=== PATIENT | female | born 1985 | race Caucasian/White ===

== ENCOUNTER → 2018-11-10 15:57 | Outpatient (CLI) | payer OTHER, SELFPAY ==
[2018-11-23 17:32] LABS: HPV HC, High Risk Positive (Negative)
[2018-11-27 14:27] LABS: HPV Reflexed? YES, CHARGE PATIENT
== END ==
LOC: LABSPEC 15:59
PROVIDERS: PCP Internal Medicine; Visit Provider Obstetrics & Gynecology
DX: Z12.4 Encounter for screening for malignant neoplasm of cervix (principal)
CPT/HCPCS: 87624; 88175; G0145

== ENCOUNTER → 2018-12-22 13:48 | Outpatient (CLI) | payer OTHER, SELFPAY ==
[2017-05-04 07:57] VITALS: BMI 42.4
--- NOTE | 2018-12-22 | IMM_PTH ---
PATIENT: ANSON DARBY LOC: [facility] U#:[id number] AGE/SX: 39/F ROOM: RE12/22/[address]: Dr. Simi Ruiz MD : 1985 BED: DIS: SPEC #: [id number] RECD: 12/23/18 13:05 STATUS: VU REQ #: [id number] HEIDY: 12/22/18 00:[address]: Simi Ruiz DEPT: IMMUNOHISTOCHEMISTRY RECD BY: Ashleigh Stiles ENTERED: 12/23/18 13:06 SP TYPE: IMMUNO OTHR DR: Dr. Tammy Cruz MD Tissues: A - Uterine cervix, NOS Procedures: p16 (initial) KI-67 (add) PHYSICIAN & [place] [phone] SPECIMEN INFORMATION: Tissue Source: A - Cervix at 6 & 12 o'clock Clinical Info: ASCUS, positive HPV Specimen Number: [id number] CPT code: 20780, 74070 METHODOLOGY: Deparaffinized sections of prefer/formalin-fixed tissue or PAP/DQ stained slides are incubated with monoclonal/polyclonal antibodies/oligonucleotide probes. Localization is made via biotin free immunoperoxidase method. Appropriate controls are performed and reacted as expected. Results on target cell population are indicated in the following table: RESULTS: ANTIBODY / CLONE RESULT Block A P16 (E6H4) positive, block staining Ki-67 (30-9) positive, moderate to high These tests were developed and their performance characteristics determined by [facility]. They may not have been cleared or approved by the U.S. Food and Drug Administration. The FDA has determined that such clearance or approval is not necessary. INTERPRETATION: A. Cervix at 6 & 12 o'clock, biopsy: Focal moderate to severe squamous dysplasia. LIZ:angi 12/23/18
--- NOTE | 2018-12-22 11:30 | CER_PTH ---
PATIENT: ANSON DARBY LOC: [facility] U#:[id number] AGE/SX: 39/F ROOM: RE12/22/[address]: Dr. Simi Ruiz MD : 1985 BED: DIS: SPEC #: [id number] RECD: 12/22/18 13:35 STATUS: VU DEYANIRA #: [id number] HEIDY: 12/22/18 11:[address]: Simi Ruiz DEPT: SURGICAL PATHOLOGY RECD BY: Iván Rodríguez ENTERED: 12/22/18 14:00 SP TYPE: CERV OTHR DR: Dr. Tammy Cruz MD Tissues: A - Uterine cervix, NOS B - Endocervical Procedures: Surgery Specimen Level IV HEADER OPERATION: Colposcopy PRE-OP DIAGNOSIS: LMP 15, ASCUS, positive HPV, rule out HGSIL TISSUE SUBMITTED: A - Cervical 6 & 12 o'clock, B - ECC MICROSCOPIC DIAGNOSIS A. Cervix, 6 & 12 o'clock, biopsy: Moderate to severe squamous dysplasia with HPV changes (HGSIL, ARIAN II-III). Dysplastic changes also involve the endocervical glands. Chronic inflammation. See comment. B. ECC: Fragments of benign endocervical epithelium, blood and mucous, negative for dysplasia. Superficial fragments of benign endometrial tissue. LIZ:angi 12/23/18 COMMENT A. Immunohistochemistry ([id number]) for surrogate HPV marker (p16) supports the above diagnosis. MICROSCOPIC DESCRIPTION Slides are reviewed. GROSS DESCRIPTION A - Received in fixative is one container labeled with the patient's name and designated cervical biopsy. The specimen consists of two irregular fragments of light hayes soft tissue that in aggregate measure 0.5 x 0.3 x 0.1 cm. The specimen is totally submitted in one cassette. B - Received in fixative is one container labeled with the patient's name and designated ECC. The specimen consists of multiple fragments of hemorrhagic soft tissue that in aggregate measure 2 x 1 x 0.2 cm. The specimen is totally submitted in one cassette. / SJ:angi 12/22/18 TC:5 CPT: 26961 x2
== END ==
LOC: LABSPEC 13:49
PROVIDERS: Family Provider Internal Medicine; PCP Internal Medicine; Referring Provider Obstetrics & Gynecology; Visit Provider Obstetrics & Gynecology
DX: R87.610 Atypical squamous cells of undetermined significance on cytologic smear of cervix (ASC-US) (principal); R87.810 Cervical high risk human papillomavirus (HPV) DNA test positive
CPT/HCPCS: 88305; 88341; 88342

== ENCOUNTER 2019-01-12 10:45 | Day surgery (SDC) | payer OTHER, SELFPAY ==
[2017-05-04 07:57] VITALS: BMI 42.4
--- NOTE | 2019-01-11 06:50 | PCM.HPOB.BLA ---
History and Physical Date of Admission: 01/12/19 PATIENT SEEN AND REEXAMINED. No changes to H and P as generated. 01/12/19 1209 Ismael Ruiz MD HISTORY OF PRESENT ILLNESS: On 01/11/2019, Nikki Sawyer, a 33 year old female 5 1 0 0 5, presented for: Scheduled for LEEP with tophat. She has severe squamous dysplasia with HPV changes (HGSIL, ARIAN II-III). Dysplastic changes also involve the endocervical glands and chronic inflammation by cervical biopsy at colposcopy, December 2018. EB ALLERGIES: NKDA MEDICATIONS HISTORY: Current medications prescribed by our practice are: 1. Chantix Continuing Month Box 1 mg tablet, as directed 2. Chantix Starting Month Box 0.5 mg (11)-1 mg (42) tablets in dose pack, as directed HEALTH MAINTENANCE HISTORY: Physical Exam: 11/10/18 REVIEW OF SYSTEMS: GENERAL - Denies fever, or chills SKIN - Denies skin changes EYES - Denies visual changes EARS - Denies difficulty hearing NOSE - Denies nasal congestion or bleeding MOUTH - Denies sore throat or difficulty swallowing NECK - Denies pain or swelling RESPIRATORY - Denies shortness of breath or wheezing CARDIOVASCULAR - Denies palpitations or chest pain GASTROINTESTINAL - Denies nausea, vomiting, diarrhea, constipation GENITOURINARY - Denies dysuria, frequency of urination, incontinence of urine MUSCULOSKELETAL - Denies joint or muscle pain NEUROLOGICAL - Denies localized numbness or weakness PSYCHIATRIC - Denies depression or anxiety ENDOCRINE - Denies heat or cold intolerance, weight loss or gain HEMATO-IMMUNOLOGIC - Denies excessive bleeding with cuts PAST HISTORY: Breast/Ovarian/Colon Cancers - adopted. Uncertain. Infections - Chicken pox and HX. OF UTI'S Illnesses - depression and constipation Accidents - no injuries of consequence History of Abnormal PAPS - YES Hospitalizations - Childbirth ascus +, HPV+; SURGICAL HISTORY: 1. 05/06/2017 none MENSTRUAL HISTORY: LMP Known?- Definitie Amount/Duration - 5 days, Regularity - Regular, Frequency - 28 days, LMP - 11/28/18, Age Onset Menarche - 16 PAST PREGNANCIES: Total Pregnancies - 6; Full Term Pregnancies - 5; Premature - 1; Abortions, Induced - 0; Abortions, Spontaneous - 0; Ectopics - 0; Multiple Births - 0; Living Children - 5 FAMILY HISTORY: Father - FH: Alcoholism; SOCIAL HISTORY: Alcohol Use - RARELY not while Smoking - Smokes--advised to quit Diet - balanced Diet, caffeine > 2 drinks per day and can't stand water Lifestyle - moderate stress lifestyle Exercise - active Seat Belt Use - always 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 Illicit Drug Use - denies use of street drugs Sexual Activity - single sexual partner and Residence - rent home and together and with daughters Place of - [place] Spouse-Sig Other Name - Court Sawyer Spouse-Sig Other Occupation - [employer] Spouse-Sig Other Phone No - [phone] Children Name(s) - Justin Felix McKenna, adopted a daughter out 2005, PHYSICAL EXAMINATION CONSTITUTIONAL - NAD, well nourished, and well developed HEENT - Normocephalic, PERRLA, EOMI NECK - no nuchal rigidity EXTREMITIES - No edema or calf tenderness NEUROLOGICAL - Cranial nerves II-XII grossly intact PSYCHIATRIC - A and O to time, place, person, mood and affect ASSESSMENT: 1. Moderate Cervical Dysplasia PLAN BY DIAGNOSIS: 1. Moderate Cervical Dysplasia Cervical biopsy with moderate to severe cervical dysplasia Recommended LEEP Reviewed R,B,A and all questions regarding procedure answered to patient's satisfaction. Consent signed. Plan for surgery as scheduled RTO for postop check up in 2 wks. First pap in 4 months then pap q 4 mo for one year to confirm full resolution Encouraged no smoking, take MVI daily
[2019-01-12] VITALS (8 sets, daily range): BP systolic 82–114; BP diastolic 62–86; PULSE 61–75; RESP 16; TEMP 36.3–36.4; O2SAT 16–100; BMI 36.8
--- NOTE | 2019-01-12 | CER_PTH ---
PATIENT: ANSON DARBY LOC: [facility] [place] U#:[id number] AGE/SX: 33/F ROOM: RE01/12/[address]: Dr. Simi Ruiz MD : 1985 BED: DIS: 01/12/2019 SPEC #: [id number] RECD: 01/12/19 14:10 STATUS: VU MCMILLAN #: [id number] HEIDY: 01/12/19 00:[address]: Simi Ruiz DEPT: SURGICAL PATHOLOGY RECD BY: Iván Rodríguez ENTERED: 01/12/19 14:10 SP TYPE: CERV OTHR DR: Michelle Primary Care Phys Tissues: A - UTERINE CERVIX LEEP B - UTERINE CERVIX LEEP C - UTERINE CERVIX LEEP Procedures: Surgery Specimen Level V HEADER OPERATION: LEEP cone with top hat PRE-OP DIAGNOSIS: Moderate cervical dysplasia TISSUE SUBMITTED: A. LEEP cone biopsy, posterior lip, B. LEEP cone biopsy, anterior lip, C. Top hat cervix MICROSCOPIC DIAGNOSIS A. Cervix, posterior lip, LEEP conization: Focal moderate dysplasia, ARIAN 2 (HSIL). Change is consistent with HPV cytopathic effect. Squamous metaplasia and chronic inflammation. Margins of excision are free of dysplasia. B. Cervix, anterior lip, LEEP conization: Focal moderate dysplasia, CIM 2 (HSIL). Change is consistent with HPV cytopathic effect. Squamous metaplasia and chronic inflammation. Margins of excision are free of dysplasia. C. Top hat of cervix, LEEP conization: Focal mild dysplasia/HPV change. Mild chronic inflammation. Margins of excision are free of dysplasia. AM:vu 01/13/19 COMMENT A, B, C: Immunohistochemistry ([id number]) supports the above diagnosis. Case has been reviewed in consultation with Dr. Landry who concurs with the above diagnosis. IDC:SJ MICROSCOPIC DESCRIPTION Slides are reviewed. GROSS DESCRIPTION A. Received in fixative is one container labeled with the patient's name and designated LEEP cone posterior lip. The specimen consists of a glistening fragment of hayes mucosa with attached submucosal tissue measuring 3 x 1.3 x 0.2 cm. No mass lesion is identified. The specimen is inked, serially sectioned and totally submitted in 3 cassettes. B. Received in fixative is one container labeled with the patient's name and designated LEEP cone biopsy anterior lip. The specimen consists of a glistening fragment of hayes mucosa with attached submucosal tissue measuring 3 x 1.6 x 0.7 cm. No mass lesion is identified. The specimen is inked, serially sectioned and totally submitted in 3 cassettes. C. Received is one container labeled with the patient name and designated top hat cervix. The specimen consists of two irregular fragments of pink-hayes soft tissue that in aggregate measure 23 x 1.7 x 0.6 cm. Both fragments are inked, serially sectioned and totally submitted in two cassette. / AM:sp 01/12/19 TC: 0 CPT: 75897 x3
--- NOTE | 2019-01-12 | IMM_PTH ---
PATIENT: ANSON DARBY LOC: [facility] [place] U#:[id number] AGE/SX: 33/F ROOM: RE01/12/[address]: Dr. Simi Ruiz MD : 1985 BED: DIS: 01/12/2019 SPEC #: [id number] RECD: 01/13/19 10:24 STATUS: VU MCMILLAN #: [id number] HEIDY: 01/12/19 00:[address]: Simi Ruiz DEPT: IMMUNOHISTOCHEMISTRY RECD BY: Robbi Encinas ENTERED: 01/13/19 10:25 SP TYPE: IMMUNO OTHR DR: No Primary Care Phys Tissues: UTERINE CERVIX LEEP Procedures: p16 (initial) KI-67 (add) P16 (add) PHYSICIAN & INSTITUTION [place] [id number] SPECIMEN INFORMATION: Tissue Source: A. LEEP cone biopsy, posterior lip, B. LEEP cone biopsy anterior lip, C. Top [facility] cervix Clinical Info: Moderate cervical dysplasia Specimen Number: [id number] A, B2, and C2 CPT code: 19917 x2, 31555 x4 METHODOLOGY: Deparaffinized sections of prefer/formalin-fixed tissue or PAP/DQ stained slides are incubated with monoclonal/polyclonal antibodies/oligonucleotide probes. Localization is made via biotin free immunoperoxidase method. Appropriate controls are performed and reacted as expected. Results on target cell population are indicated in the following table: RESULTS: ANTIBODY / CLONE RESULT Block A P16 (E6H4) positive, block-like, strong intensity Ki-67 (30-9) positive, >50% Block B2 P16 (E6H4) positive, block-like, strong intensity Ki-67 (30-9) positive, >50% Block C2 P16 (E6H4) positive, focal patchy Ki-67 (30-9) positive, low These tests were developed and their performance characteristics determined by [facility]. They may not have been cleared or approved by the U.S. Food and Drug Administration. The FDA has determined that such clearance or approval is not necessary. INTERPRETATION: A. Posterior cervix, LEEP: Focal moderate dysplasia, CINII (HSIL) B. Anterior cervix, LEEP: Focal moderate dysplasia, CINII (HSIL) C. Cervix, top hat, excision: Focal HPV change with mild dysplasia AM:cc 01/13/19
[2019-01-12 11:15] LABS: Internal QC Validated? YES +Cl - CLEAR BKGD; Pregnancy, Urine Negative Negative
[2019-01-12] MEDS: Lactated Ringers 1,000 ML 150 ML IV (11:59)
--- NOTE | 2019-01-12 12:21 | DCINST_ITS ---
Discharge Diet: No Restrictions Discharge Activity: May Shower, May Take a Tub Bath Return to work on:: 01/13/19 May resume sexual activity in: 4-6 weeks, 2 weeks Weight Bearing Status: Weight bearing as tolerated Call your doctor if you observe: Fever of 101 or Higher, Using more than one pad per hour Additional Instructions: Nothing in vagina for 2 wks to allow healing. Take Tylenol 500 mg tablets 1-2 tablets by mouth every 6 hrs as needed for pain. Allergies/Adverse Reactions: Allergies No Known Allergies Allergy (Verified 01/06/19 13:42) Medications to take at Discharge NK 01/06/19 Primary Care Physician: Care Physician,No Primary [Primary Care Provider] - Test Results: Test results from this visit will be discussed in further detail at your follow- up appointment, if applicable. Please Follow Up With: Simi Ruiz MD - [phone] When: 2 wk for postoperative check up. Proposed Discharge Date: 01/12/19
[2019-01-12] MEDS: Acetaminophen 500 MG Tablet PO (13:40)
--- NOTE | 2019-01-14 07:16 | PCM.OPRPT ---
Report of Operation Date of Procedure: 01/12/19 Pre-Operative Diagnosis: Moderate to severe cervical dysplasia Post-Operative Diagnosis: Same Surgery/Procedure Performed:: LEEP with top hat Description of Surgical Findings:: Parous , patulous cervix. Large Lugols nonstaining area noted at ectocervix. Type of Anesthesia:: Local MAC Anesthesiologist: Joseph Devine Special Medications: 10 cc 1% lidocaine with 1:100,000 epinephrine Specimen's removed: LEEP cone biopsy, anterior and posterior lip. Top Hat Drains: red sahu catheter prior to procedure Estimated Blood Loss (mL): 50 cc Fluids Replaced: LR Description of Procedure: After the risks, benefits, alternatives of the procedure had been reviewed and informed consent obtained, patient was taken to the operating room with an IV running. She was placed in dorsal supine position on the operating table and given MAC IV sedation. she was then repositioned to the dorsal lithotomy position and prepped and draped in the usual sterile fashion with vault prep. A red Sahu catheter was used to drain the bladder. A coated large Graves speculum was inserted into the vagina and the cervix brought into view. A paracervical block of 1% lidocaine with 1:100,000 epinephrine was instilled. Lugols was applied and a large Lugol nonstaining area was visualized. The LEEP procedure was performed in two passes due to the large patulous cervix. The posterior lip was excised, then the anterior lip. Each specimen was identified and sent separately for pathology. The Top Hat was performed. All at a 50:50 blend at 50 coag and 50 cut. The Ball cautery was then used to treat the margins and base of the excision at the remaining cervix. Monsels was applied. A sponge stick was used to remove and remaining blood from the upper vagina and cervix. Excellent hemostasis was noted. At the point the procedure was terminated. Sponge, and needle and instruments counts correct times two. The speculum was removed. The patient was returned to dorsal supine position and awaked from IV sedation. She was transferred to the recovery room in stable condition after tolerating the procedure well. - Admit VTE Documentation VTE Present on Admission: No VTE Mechan Device Prophylaxis: SCD's
== END 2019-01-12 13:58 | disposition home or self-care (01) ==
LOC: SDC 10:51 → AC 10:53
PROVIDERS: Referring Provider Obstetrics & Gynecology; Visit Provider Obstetrics & Gynecology
PROC: 0UBC7ZZ Excision of Cervix, Via Natural or Artificial Opening (ICD-10-PCS; CPT 57522; principal; 2019-01-12 12:10)
DX: D06.9 Carcinoma in situ of cervix, unspecified (principal); F17.210 Nicotine dependence, cigarettes, uncomplicated
CPT/HCPCS: 57522; 81025; 88307; 88341; 88342; J7120

== ENCOUNTER 2019-05-24 21:58 | Emergency (ER) | payer SELFPAY ==
[2019-01-12 11:18] VITALS: BMI 36.8
[2019-05-24 21:59] VITALS: BP 150/93; PULSE 80; RESP 17; TEMP 36.4; O2SAT 100; BMI 29.9
--- NOTE | 2019-05-24 22:48 | ED.DCSUM_ITS ---
History of Present Illness Chief Complaint: Dental Informant: Patient Onset: Today Context: Gradual Onset Current Severity: Mild Maximum Severity: Moderate Narrative: She presents with right lower dental pain. She states her tooth is been broken off for quite some time but it started hurting today. She tells me that her primary care physician told her that she may have gout setting into her teeth. - Past Medical History (1) Anxiety and depression Status: Chronic (2) Hypertension Status: Chronic (3) Gout Status: Resolved Past Medical History - Allergies and Home Meds Allergies/Adverse Reactions: Allergies No Known Allergies Allergy (Verified 05/24/19 21:59) Primary Care Physician: Care Physician,No Primary [Primary Care Provider] - Prior records reviewed: Yes Lives: Spouse/ Significant Other Smoking Status: Current every day smoker Review of Systems General: Denies: Chills, Fever Eyes: Denies: Visual changes - bilaterally ENT: Denies: Bilateral ear pain Cardiovascular: Denies: Chest pain Respiratory: Denies: Dyspnea, Cough Gastrointestinal: Denies: Abdominal pain, Nausea Musculoskeletal: Denies: Extremity Pain Skin: Denies: Rash Neurological: Denies: Headache Allergy: Denies: Uticaria Physical Exam Vital Signs/Narrative: Vital Signs Temp Pulse Resp BP Pulse Ox 05/24/19 21:59 97.5 F L 80 17 150/93 H 100 Inital Vital Signs reviewed: Yes General: Well nourished, Well developed Head: Normocephalic ENT: Moist mucous membranes, - - No facial edema or erythema. Multiple dental caries. Right mandibular canine tooth is broken with mild gum edema. Left molars are all broken at gumline and decayed. Mild gum edema is noted here as well. Neck: Supple, - - No submandibular fullness. Cardiovascular: Regular rate, Regular rhythm, No murmurs Respiratory: No distress, CTA bilaterally Abdomen: Soft, Nontender Extremities: Nontender Skin: Normal color Neurological: Alert, Oriented x3 Psychological: Normal affect Diagnostic/Tx/Re-eval - Medical Decision Making Patient be treated with Pen-Vee K and naproxen, first doses given here. She is given a dental referral list. ED Disposition - Plan for ED Patient: Disposition: Home or Assisted Living Diagnosis: Pain, dental Instructions: Dental Pain Prescriptions: Naproxen [Naprosyn] 500 mg PO BID PRN PRN #20 tab PRN Reason: Pain Score 4-10/10 [facility] Penicillin V Potassium 500 mg PO 4X/DAY #40 tab [id number] Additional Instructions: Dental referral list provided
[2019-05-24] MEDS: Penicillin Vk 250 MG Tablet 500 MG PO (23:00)
[2019-05-24] MEDS: Naproxen 500 MG Tablet PO (23:00)
== END 2019-05-24 23:01 | disposition home or self-care (01) ==
PROVIDERS: Emergency Provider Emergency Medicine
DX: K08.89 Other specified disorders of teeth and supporting structures (principal); F17.200 Nicotine dependence, unspecified, uncomplicated
CPT/HCPCS: 99283

== ENCOUNTER 2020-01-20 23:11 | Emergency (ER) | payer SELFPAY ==
[2020-01-20 23:12] VITALS: BP 137/89; PULSE 58; RESP 16; TEMP 36.3; BMI 38.2
[2020-01-20 23:14] VITALS: BP 137/89; PULSE 58; RESP 16; TEMP 36.3
--- NOTE | 2020-01-20 23:21 | ED.DCSUM_ITS ---
History of Present Illness Chief Complaint: Dental Informant: Patient Onset: Yesterday Current Severity: Moderate Maximum Severity: Moderate Narrative: Presents with left lower dental pain that started yesterday. She states the tooth is been broken off for quite some time but did not become painful until yesterday. She did have a tooth on the right side pulled recently. She states she can see her dentist again on Wednesday. She denies fever or chills. She has been trying Tylenol, ibuprofen, Aleve at home without improvement. - Past Medical History (1) Anxiety and depression Status: Chronic (2) Hypertension Status: Chronic Past Medical History - Allergies and Home Meds Allergies/Adverse Reactions: Allergies No Known Allergies Allergy (Verified 05/24/19 21:59) Prior records reviewed: Yes Smoking Status: Current every day smoker Review of Systems General: Denies: Chills, Fever Eyes: Denies: Visual changes - bilaterally ENT: Reports: Left ear pain, - - Left lower dental pain Cardiovascular: Denies: Chest pain Respiratory: Denies: Dyspnea, Cough Gastrointestinal: Denies: Abdominal pain, Nausea, Vomiting, Diarrhea Neurological: Denies: Headache Hematologic: Denies: Easy bruising, Easy bleeding Allergy: Denies: Uticaria Physical Exam Vital Signs/Narrative: Vital Signs Temp Pulse Resp BP 01/20/20 23:14 97.4 F L 58 L 16 137/89 H 01/20/20 23:12 97.4 F L 58 L 16 137/89 H Inital Vital Signs reviewed: Yes General: Well nourished, Well developed Head: Normocephalic ENT: Moist mucous membranes, - - Mild left facial edema. No erythema. Intraoral examination reveals multiple dental caries with teeth decayed down to the gumline. She does have edema of the left lower gums. No trismus. No sign of Irlanda's angina. Patient speaks with a strong voice and tolerate secretions well. Neck: Supple Cardiovascular: Regular rate Respiratory: No distress Skin: Normal color Neurological: Alert, Oriented x3 Psychological: Normal affect Diagnostic/Tx/Re-eval - Medical Decision Making She will be given Pen-Vee K and naproxen, first doses here. Prescriptions will be sent to [facility] for her. She is to follow-up with her dentist on Wednesday as discussed. ED Disposition - Plan for ED Patient: Disposition: Home or Assisted Living Diagnosis: Pain, dental Instructions: ED Tooth Pain Prescriptions: Naproxen [Naprosyn] 500 mg PO BID PRN PRN #20 tab PRN Reason: Pain Score 4-02/23 Transmission Status: Sent to [id number] Penicillin V Potassium 500 mg PO 4X/DAY #40 tab Transmission Status: Sent to [id number] Additional Instructions: Follow-up with your dentist on Wednesday as discussed.
[2020-01-21] MEDS: Penicillin Vk 250 MG Tablet 500 MG PO
[2020-01-21] MEDS: Naproxen 500 MG Tablet PO
[2020-01-21 00:01] VITALS: RESP 16
== END 2020-01-21 00:02 | disposition home or self-care (01) ==
LOC: ED 23:33
PROVIDERS: Emergency Provider Emergency Medicine
DX: K08.89 Other specified disorders of teeth and supporting structures (principal); F17.200 Nicotine dependence, unspecified, uncomplicated
CPT/HCPCS: 99283